=== PATIENT | male | born 1980 ===

== ENCOUNTER 2023-01-26 17:26 | Emergency (ER) | payer MEDICAID ==
[~2023-01-26] VITALS: Ht 170.2 cm; Wt 68.2 kg
[2023-01-26 18:24] VITALS: BP 114/77
[2023-01-26] MEDS ORDERED: bacitracin 15gm ointment TP ONE (19:20)
[2023-01-26] MEDS ORDERED: CLIN-97 PO (20:24)
== END 2023-01-26 20:31 | disposition home or self-care (01) ==
LOC: ER 17:28
DX: L02.415 Cutaneous abscess of right lower limb (principal); Z88.1 Allergy status to other antibiotic agents; Z79.899 Other long term (current) drug therapy
CPT/HCPCS: 10060; 99283; A6266; A6449